=== PATIENT | male | born 1985 | race Caucasian/White ===

== ENCOUNTER → 2025-03-12 06:33 | Outpatient (REF) | payer BC, SELFPAY | LOC: RAD 06:33 | PROVIDERS: ATTENDING PHYSICIAN Physician Assistant Medical | DX: I10 Essential (primary) hypertension (principal); E78.2 Mixed hyperlipidemia; Z82.49 Family history of ischemic heart disease and other diseases of the circulatory system | CPT/HCPCS: 76770 ==

== ENCOUNTER 2025-06-04 05:58 | Day surgery (SDC) | payer BC, SELFPAY ==
--- NOTE | 2025-05-19 14:51 | VNURNOTE ---
chart reviewed. Liaison was updated that pt will need VN post op. Referral placed in [facility]. Will follow up with pt after surgery.
[2025-06-04] VITALS (8 sets, daily range): BP systolic 112–159; BP diastolic 69–106; BMI 38.9
[2025-06-04] MEDS: TYLENOL 1000 MG PO (06:54)
[2025-06-04] MEDS: HEPARIN 5000 UNITS SC (06:55)
[2025-06-04] MEDS: NORMOSOL-R/PLASMALYTE-A 1000 IV (07:03)
--- NOTE | 2025-06-04 09:43 | OR.RPT ---
Operative Report
Operative Report
Primary Surgeon: Fern
Assisting: Bibiana NYE
Pre-op Diagnosis: Incarcerated umbilical hernia
Post-op Diagnosis: Same
Procedure Performed: Robot assisted laparoscopic repair of incarcerated umbilical hernia (rTAPP)
Anesthesia Type: GETA + TAP block
Specimen / Cultures: None
Estimated Blood Loss: 2cc
Complications: None immediate
Operative Findings: 4.5x3.5cm defect, 15cm bard soft mesh
DOS: 06/04/25
Indications:� This 40M developed an incarcerated umbilical hernia. Robot assisted laparoscopic repair was planned.
Description of procedure:� The patient was taken to the operating room and positioned into supine position. The patient�s abdomen was prepped and draped in standard sterile fashion. A time-out was completed verifying correct patient, procedure,
site, positioning, and implants and special equipment prior to beginning this procedure.� A stab incision was made in the left upper quadrant, a Veress needle was inserted and proper position was confirmed by aspiration and saline drop test.
Following this, pneumoperitoneum was created with insufflation of carbon dioxide to 12 mmHg. Then a 8mm robotic trocar was inserted at the left anterior axillary line. The laparoscope was inserted and no injuries were identified in the area. Under
direct visualization, two 8mm trocars were placed a hand's breadth inferior to the initial trocar and a hand's breadth inferior to the second trocar in succession.
Attention was turned to the defect. The peritoneum was incised several cm superior to the defect and a peritoneal flap was developed in transverse and caudad directions using blunt and sharp dissection and judicious electrocautery. The defects
measured as above. Incarcerated fat was reduced and the defect was closed with 0 PDS stratafix suture. Mesh was passed into the abdomen and centered on the defect and then placed against the underside of the abdominal wall and secured in place with
2-0 vicryl sutures at all four corners as well as under the defect. A small flap rent on the left side was closed with 3-0 vicryl suture. The flap was closed over the mesh and secured with 2-0 monocryl stratafix suture. A transversus abdominis
plane block was then performed under laparoscopic vision with marcaine/decadron.
After ensuring adequate hemostasis, the trocars were removed and the pneumoperitoneum allowed to escape. The trocar incisions were closed at the skin level using 4-0 monocryl and topical skin adhesive. All counts were correct. The patient tolerated
the procedure well and was taken to the postanesthesia care unit in stable condition.
The assistance of iBbiana BRITT was required due to the complexity of the procedure. During the procedure she assisted with retraction, resection, and closure of the wound.
== END 2025-06-04 10:58 | disposition home or self-care (01) ==
LOC: SDS 05:58
PROVIDERS: ATTENDING PHYSICIAN Surgery
DX: K42.0 Umbilical hernia with obstruction, without gangrene (principal)
CPT/HCPCS: 49594; C1781